=== PATIENT | female | born 2000 | race American Indian/Alaskan Native ===

== ENCOUNTER 2021-08-10 21:41 | Outpatient (CLI) | payer MEDICAID ==
[2021-08-10 22:46] VITALS: BP 134/70
[2021-08-10] MEDS ORDERED: LACTATED RINGERS 500 ML IV ONE (22:47)
== END 2021-08-11 01:04 | disposition home or self-care (01) ==
LOC: TRG 21:41 → APU 21:43 → TRG 08-11 01:04
PROVIDERS: ATTEND Obstetrics & Gynecology
DX: O26.893 Other specified pregnancy related conditions, third trimester (principal); M54.50 Low back pain, unspecified; Z3A.37 37 weeks gestation of pregnancy
CPT/HCPCS: 59025; J7120

== ENCOUNTER 2021-08-30 13:54 | Outpatient (CLI) | payer MEDICAID ==
[2021-08-30 15:30] VITALS: BP 121/75
== END 2021-08-30 15:50 | disposition home or self-care (01) ==
LOC: TRG 13:54 → APU 13:55 → TRG 15:50
PROVIDERS: ATTEND Obstetrics & Gynecology
DX: Z34.93 Encounter for supervision of normal pregnancy, unspecified, third trimester (principal); Z3A.39 39 weeks gestation of pregnancy
CPT/HCPCS: 59025